=== PATIENT | male | born 2000 | race Caucasian/White ===

== ENCOUNTER 2024-12-10 23:19 | Emergency (ER) | payer OTHER ==
[~2024-12-10] VITALS: Ht 175.3 cm; Wt 63.5 kg
[2024-12-11] MEDS ORDERED: IBUP-1957 PO (00:10)
[2024-12-11 00:21] VITALS: BP 130/78; TEMP 98.3; O2SAT 98
== END 2024-12-11 00:22 | disposition home or self-care (01) ==
LOC: ER 23:21
DX: S20.212A Contusion of left front wall of thorax, initial encounter (principal); J45.909 Unspecified asthma, uncomplicated; Z79.1 Long term (current) use of non-steroidal anti-inflammatories (NSAID); W03.XXXA Other fall on same level due to collision with another person, initial encounter; Y93.61 Activity, american tackle football; Y93.89 Activity, other specified; Y92.89 Other specified places as the place of occurrence of the external cause; Y99.8 Other external cause status
CPT/HCPCS: 71100-TC